=== PATIENT | male | born 1995 | race Asian ===

== ENCOUNTER 2019-04-26 20:30 | Emergency (ER) | payer OTHER ==
--- NOTE | 2019-04-26 21:02 | ED ---
Lower Extremity - HPI Summary HPI Summary: Patient is a 23 y/o M presenting to ED with complaints of left calf pain for the past three weeks. Patient was evaluated at urgent care today and was advised to come to ED to r/o blood clots. Patient states that he started running a few weeks ago, pain onset during this period. No discrete injury is noted. He states that he believed the Sx were due to lowery splints, patient has been resting and not running for the past three weeks as a result. He states that Sx have persisted. Patient took ibuprofen once to treat pain, but states that the pain was not intense enough that he felt the need to take more medications. Patient has not applied heat/ice to the area. He rates pain 2-3/ 10. He notes that weight-bearing and palpation in certain areas aggravate Sx. He states that the area is not hot and he denies fever, nausea. No allergies to medicine are noted. - History of Current Complaint Chief Complaint: EDExtremityLower Stated Complaint: LT LEG PAIN PER PT Time Seen by Provider: 04/26/19 20:42 Hx Obtained From: Patient Mechanism Of Injury: Other - no CATY Onset of Pain: Prior to Arrival Onset/Duration: Weeks Severity Currently: Mild Pain Intensity: 3 Pain Scale Used: 0-10 Numeric Timing: Lasting Weeks Location: Is Discrete @ - left calf Associated Signs And Symptoms: Positive: Other - no nausea, area is not warm. Negative: Fever Aggravating Factor(s): Weight Bearing, Other - palpation - Allergies/Home Medications Allergies/Adverse Reactions: Allergies Allergy/AdvReac Type Severity Reaction Status Date / Time No Known Allergies Allergy Verified 04/26/19 20:41 Home Medications: Home Medications Montelukast Sodium TAB* [Singulair TAB*] 10 mg PO DAILY 04/26/19 [History Confirmed 04/26/19] PMH/Surg Hx/FS Hx/Imm Hx Respiratory History: Reports: Hx Asthma Sensory History: Denies: Hx Legally Blind, Hx Deafness Opthamlomology History: Denies: Hx Legally Blind EENT History: Denies: Hx Deafness - Surgical History Surgery Procedure, Year, and Place: none Infectious Disease History: No Infectious Disease History: Denies: Traveled Outside the [place] in Last 30 Days - Family History Known Family History: Negative: Hypertension, Diabetes - Social History Occupation: Student Alcohol Use: Occasionally Substance Use Type: Reports: None Smoking Status (MU): Never Smoked Tobacco Review of Systems Negative: Fever Negative: Nausea Musculoskeletal: Other - positive - left calf pain Skin: Other - negative - warm to touch area at left leg All Other Systems Reviewed And Are Negative: Yes Physical Exam - Summary Physical Exam Summary: General: Well-developed, Well-nourished male. No acute distress. HEENT: Normocephalic, Atraumatic. Eyes: conjuctiva normal, PERRL. Ears: TMs within normal limits. Nares: (-) discharge, (-) erythema. Oropharynx: clear, mucous membranes moist, (-) exudates. Neck: soft, FROM, (-) lymphadenopathy, (-) thyromegaly, (-) JVD. Cardiovascular: normal sinus rhythm, (-) murmur. Respiratory: clear to auscultation bilaterally (-) wheezes, (-) rales, (-) rhonchi. Abdomen: soft, non-tender, non-distended, (-) organomegaly, normal bowel sounds. Neuro: Alert and oriented x3, no focal deficits. Extremities: No edema, no tenderness, normal pulses, negative homans Skin: warm, dry, (-) rash. Psychiatric: mood normal, affect normal. Triage Information Reviewed: Yes Vital Signs On Initial Exam: Initial Vitals Temp Pulse Resp BP Pulse Ox 98.5 F 70 16 127/77 98 04/26/19 20:35 04/26/19 20:35 04/26/19 20:35 04/26/19 20:35 04/26/19 20:35 Vital Signs Reviewed: Yes Diagnostics - Vital Signs Vital Signs Temp Pulse Resp BP Pulse Ox 04/26/19 20:35 98.5 F 70 16 127/77 98 - Laboratory Lab Statement: Any lab studies that have been ordered have been reviewed, and results considered in the medical decision making process. - Ultrasound LLE VENOUS DOPPLER STUDY Ultrasound Interpretation Completed By: Radiologist Summary of Ultrasound Findings: IMPRESSION: No deep venous thrombosis. THIS REPORT WAS REVIEWED BY DR. VÁSQUEZ. Lower Extremity Course/Dx - Course Course Of Treatment: Patient is a 23 y/o M presenting to ED with complaints of left calf pain for the past three weeks. Patient was evaluated at urgent care today and was advised to come to ED to r/o blood clots. On physical exam, no edema, no tenderness, normal pulses, negative homans of left leg. LLE VENOUS DOPPLER STUDY IMPRESSION: No deep venous thrombosis. Patient was discharged to home. He was advised to ice leg, keep the leg elevated, and to take anti- inflammatory medications. He was instructed to wear sneakers at all times, no flip-flips or sandals. Patient to follow up with PCP within three days. - Diagnoses Provider Diagnoses: Pain of left calf Discharge ED - Sign-Out/Discharge Documenting (check all that apply): Patient Departure - discharge Patient Received Moderate/Deep Sedation with Procedure: No - Discharge Plan Condition: Stable Disposition: HOME Patient Education Materials: Leg Pain (ED) Referrals: [facility] [Outside] - 3 Days Additional Instructions: Apply ice to your leg and keep it elevated. Take anti-inflammatory medications for pain. Wear sneakers at all times, do not wear flip-flops and sandals. Please follow up with your primary care physician within three days. Please return to ED for any new or worsening symptoms. - Billing Disposition and Condition Condition: STABLE Disposition: Home - Attestation Statements Scribe Documentation Reviewed: Yes
[2019-04-26 22:44] VITALS: BP 120/68
== END 2019-04-26 22:20 | disposition home or self-care (01) ==
LOC: ED 20:30
DX: M79.662 Pain in left lower leg (principal); Z79.899 Other long term (current) drug therapy
CPT/HCPCS: 99282

== ENCOUNTER 2019-10-07 02:52 | Emergency (ER) | payer OTHER ==
[2019-10-07 06:19] VITALS: BP 132/83
--- NOTE | 2019-10-07 06:35 | ED ---
Lower Extremity - HPI Summary HPI Summary: Patient is a 23 y/o M presenting to [facility] with complaints of numbness/soreness of his left upper leg. Sx onset 10/06/19 around when the patient got up from his desk and began to ambulate home from his college campus. The patient notes that he had been sitting for most of the day but had been getting up and walking around periodically. He states that he called [facility] and was advised to be evaluated for this Sx. Patient was going to wait until the morning to be evaluated, but he became concerned about the persistent nature of this Sx and came to the ED. Sx worse with ambulation. Patient did not take any medications for this Sx. He notes that he is SOB as well, but he also reports Hx of mild asthma. Back pain, incontinence, numbness of the groin or rectal areas, droop foot, fever, chills, cough, N/V/D are denied. PMHx of GERD. PSHx of wisdom teeth removal. FMHx of HTN. Home medications and allergies are reviewed. - History of Current Complaint Chief Complaint: EDExtremityLower Stated Complaint: POSS BLOOD CLOT IN LEG PER PT Time Seen by Provider: 10/07/19 05:32 Hx Obtained From: Patient Onset of Pain: Prior to Arrival Onset/Duration: Still Present Pain Intensity: 0 Pain Scale Used: 0-10 Numeric Timing: Lasting Hours Location: Is Discrete @ - left upper leg Associated Signs And Symptoms: Positive: Other - Back pain, incontinence, numbness of the groin or rectal areas, droop foot, fever, chills, cough, N/V/D are denied. Aggravating Factor(s): Movement - Allergies/Home Medications Allergies/Adverse Reactions: Allergies Allergy/AdvReac Type Severity Reaction Status Date / Time No Known Allergies Allergy Verified 10/07/19 02:55 PMH/Surg Hx/FS Hx/Imm Hx Respiratory History: Reports: Hx Asthma GI History: Reports: Hx Gastroesophageal Reflux Disease Sensory History: Denies: Hx Legally Blind, Hx Deafness Opthamlomology History: Denies: Hx Legally Blind - Surgical History Surgery Procedure, Year, and Place: wisdom teeth removal Infectious Disease History: No Infectious Disease History: Denies: Traveled Outside the [place] in Last 30 Days - Family History Known Family History: Positive: Hypertension - Social History Alcohol Use: Occasionally Substance Use Type: Reports: None Smoking Status (MU): Never Smoked Tobacco - Additional Comments History Additional Comments: PMHx of asthma and GERD PSHx of wisdom teeth removal FMHx of HTN Review of Systems - ROS Summary Review of Systems Summary: Home Medications Medication Instructions Recorded Confirmed Type Montelukast Sodium TAB* [Singulair 10 mg PO DAILY 04/26/19 04/26/19 History TAB*] Negative: Fever, Chills Positive: Shortness Of Breath. Negative: Cough Negative: Vomiting, Diarrhea, Nausea Negative: incontinence Musculoskeletal: Other - negative - back pain Positive: Myalgia - left upper leg soreness Neurological: Other - `negative - drop foot, numbness of the groin or rectal areas Positive: Numbness - left upper leg All Other Systems Reviewed And Are Negative: Yes Physical Exam - Summary Physical Exam Summary: General: Well-developed, Well-nourished male. No acute distress. HEENT: Normocephalic, Atraumatic. Eyes: Conjuctiva normal, PERRL. Oropharynx: Clear, mucous membranes moist, (-) exudates. Neck: Soft, FROM, (-) lymphadenopathy, (-) thyromegaly, (-) JVD. Cardiovascular: Normal sinus rhythm, (-) murmur. Lungs: Clear to auscultation bilaterally (-) wheezes, (-) rales, (-) rhonchi. Abdomen: Soft, non-tender, non-distended, (-) organomegaly, normal bowel sounds. Back: (-) CVA tenderness, (-) spinal tenderness Extremities: No edema. Negative Homans test. Skin: Warm, dry, (-) rash. Neuro: Alert and oriented x3, moves all extremities equally. No ataxia. No gait disturbance. No sensory deficit. Normal strength, normal sensation. Psychiatric: Mood normal, affect normal. Triage Information Reviewed: Yes Vital Signs On Initial Exam: Initial Vitals Temp Pulse Resp BP Pulse Ox 97.3 F 88 15 120/99 98 10/07/19 02:53 10/07/19 02:53 10/07/19 02:53 10/07/19 02:53 10/07/19 02:53 Vital Signs Reviewed: Yes Procedures - Sedation Patient Received Moderate/Deep Sedation with Procedure: No Diagnostics - Vital Signs Vital Signs Temp Pulse Resp BP Pulse Ox 10/07/19 06:15 73 132/83 99 10/07/19 06:00 76 99 10/07/19 05:45 69 129/75 98 10/07/19 05:43 66 98 10/07/19 02:53 97.3 F 88 15 120/99 98 - Laboratory Lab Results: Lab Results 10/07/19 Range/Units 05:17 D-Dimer, Quantitative < 200 (Less Than 230) ng/mL Lab Statement: Any lab studies that have been ordered have been reviewed, and results considered in the medical decision making process. Lower Extremity Course/Dx - Diagnoses Provider Diagnoses: Left leg numbness Discharge ED - Sign-Out/Discharge Documenting (check all that apply): Patient Departure - discharge - Discharge Plan Condition: Stable Disposition: HOME Patient Education Materials: Paresthesia (ED) Referrals: [facility] [Primary Care Provider] - 3 Days Additional Instructions: PLEASE RETURN TO ED FOR ANY NEW OR WORSENING SYMPTOMS. PLEASE FOLLOW UP WITH YOUR PRIMARY CARE PHYSICIAN WITHIN THREE DAYS. - Attestation Statements Document Initiated by Scribe: Yes Documenting Scribe: JODI MCLAIN Provider For Whom Scribe is Documenting (Include Credential): GISELE VÁSQUEZ MD Scribe Attestation: IJODI, scribed for GISELE VÁSQUEZ MD on 10/07/19 at 0649. Status of Scribe Document: Ready
== END 2019-10-07 06:34 | disposition home or self-care (01) ==
LOC: ED 02:52
DX: M54.9 Dorsalgia, unspecified (principal); J45.909 Unspecified asthma, uncomplicated; K21.9 Gastro-esophageal reflux disease without esophagitis; R20.0 Anesthesia of skin
CPT/HCPCS: 36415; 85379; 99282